=== PATIENT | male | born 1965 | race Caucasian/White ===

== ENCOUNTER 2020-05-06 10:25 | Outpatient (NON) | payer BC, SELFPAY ==
[2020-05-07 14:13] LABS: SARS-CoV-2 RNA PCR Positive
== END 2020-05-06 10:26 ==
LOC: ANHCOVIDDT 10:26
PROVIDERS: PCP Internal Medicine; Visit Provider Registered Nurse
DX: U07.1 COVID-19 (principal)
CPT/HCPCS: 87635; C9803; U0003